=== PATIENT | male | born 1975 | race African-American/Black ===

== ENCOUNTER 2019-12-24 01:11 | Day surgery (SDC) | payer OTHER, SELFPAY ==
[2019-12-24] VITALS (14 sets, daily range): BP systolic 101–117; BP diastolic 73–81; PULSE 61–79; RESP 10–20; TEMP 36.2–36.6; O2SAT 100; BMI 27.2
--- NOTE | ~2019-12-24 | XR_ITS ---
EXAMINATION: XR chest 1V portable EXAM DATE: 12/24/2019 12:43 INDICATION: Status post ICD placement. TECHNIQUE: Portable AP frontal chest x-ray was obtained. Comparison is made to prior examination from 04/14/2019. FINDINGS: There is single lead pacemaker/AICD device seen with tip projecting over the expected locat ion of right ventricle. No confluent consolidation, pneumothorax or pleural effusion suspected. The c ardiomediastinal silhouette is prominent but magnified on this AP technique. There are no osseous abn ormalities identified. IMPRESSION: No evidence postprocedure pneumothorax. Reviewed, dictated and finalized at location A. NOMY TEACHER
--- NOTE | ~2019-12-24 | XR_ITS ---
EXAMINATION: XR chest 2V DATE: 12/25/2019 09:56 INDICATION: Intracardiac defibrillator placement. TECHNIQUE: Frontal and lateral views of the chest were obtained. COMPARISON: Chest single view 12/24/2019 FINDINGS: The chest demonstrates clear lungs without pneumonia, pleural effusion, or pneumothorax. Th e heart size is normal. There is a left chest pacer/defibrillator with lead in right ventricle. There is mild chronic anterior wedging of multiple midthoracic vertebral bodies. IMPRESSION: 1. No acute cardiopulmonary disease. Reviewed, dictated and finalized at location A. NER TECHNICIAN
--- NOTE | 2019-12-24 08:30 | ECG_ITS ---
Measurements Intervals [place] Rate: 75 P: 60 MS: 179 QRS: -42 QRSD: 140 T: -12 QT: 399 QTc: 447 Interpretive Statements SINUS RHYTHM LEFT ATRIAL ENLARGEMENT RIGHT BUNDLE BRANCH BLOCK ANTERIOR INFARCT, AGE INDETERMINATE INFERIOR INFARCT, AGE INDETERMINATE BASELINE ARTIFACT- II, III, AVF ABNORMAL ECG Electronically Signed On 12-24-2019 9:25:17 INGOT CAR OPERATOR by Keven Saba D.O.
[2019-12-24 09:24] LABS: Basophils Absolute Auto 0.1 K/mm3 (0.0-0.1); Eosinophils Absolute Auto 0.1 K/mm3 (0-0.3); Eosinophils Percent Auto 1.8 % (0-4.4); Hematocrit 47.5 % (42.0-52.0); Hemoglobin 15.4 g/dL (14.0-18.0); Immature Granulocyte Absolute 0.02 K/mm3 (0.00-0.031); Immature Granulocyte Percent A 0.3 % (0-0.5); Lymphocytes Absolute Auto 2.32 K/mm3 (0.9-3.2); Lymphocytes Percent Auto 30.1 % (18.3-44.2); Mean Corpuscular HGB Conc 32.4 g/dl (32-36); Mean Corpuscular Hemoglobin 30.1 pg (26-34); Mean Platelet Volume 10.8 fl (7.4-10.4); Monocytes Absolute Auto 0.6 K/mm3 (0.1-0.6); Monocytes Percent Auto 7.7 % (2.6-8.5); Neutrophils Absolute Auto 4.6 K/mm3 (1.3-6.7); Neutrophils Percent Auto 59.1 % (45.5-73.1); Platelet Count Result 197 k/mm3 (150-375); Red Blood Count 5.11 M/mm3 (4.6-6.20); Red Cell Distribution Width 12.2 % (11.5-14.5); White Blood Count 7.7 K/mm3 (4.5-10.0)
[2019-12-24 09:35] LABS: INR 1.1; Prothrombin Time 13.6 Seconds (11.1-14.7)
--- NOTE | 2019-12-24 09:45 | PM.IMHP ---
H&P: HPI History of Present Illness Chief complaint: Severe LV Systolic Dysfunction Narrative: Date of service: 12/24/2019 Brody Alvares is a 44 year old male who is here for an ICD implantation. He has history of ND and cardiogenic shock in April [address] Mendiola with stents of the RCA and Left anterior descending. Despite medical therapy, his EF remains 26% and he is at risk of sudden cardiac . ICD implantation has been recommended to him for primary prevention. He is feeling well today, no volume overload, shortness of breath, chest pain or fevers. History of left clavicular fracture. Review of Systems Constitutional: Constitutional: Denies chills ENT: Denies epistaxis Cardiovascular: Cardiovascular: Denies chest pain and Denies leg edema Respiratory: Respiratory: Denies chest congestion and Denies dyspnea Gastrointestinal: Gastrointestinal: Denies abdominal pain Genitourinary: Genitourinary: Denies dysuria Musculoskeletal: Musculoskeletal: Denies back pain Integumentary/Breasts: Skin/Breast: Denies rash Neurologic: Denies confusion Psychiatric: Psychiatric: Denies anxiety [facility] Past Medical History Medical History Inferior myocardial infarction Associated with cardiogenic shock, April 2019, treated with RCA and Left anterior descending stents by Dr. Mendiola Ischemic cardiomyopathy Meds Home Medications and Allergies Home Medications Medication Instructions Recorded Confirmed Type aspirin 81 mg PO HS 12/24/19 12/24/19 History atorvastatin 80 mg PO HS 12/24/19 12/24/19 History lisinopril 2.5 mg PO HS 12/24/19 12/24/19 History metoprolol succinate 50 mg PO HS 12/24/19 12/24/19 History spironolactone 25 mg PO DAILY 12/24/19 12/24/19 History ticagrelor [Brilinta] 90 mg PO Q12H 12/24/19 12/24/19 History Allergies Allergy/AdvReac Type Severity Reaction Status Date / Time No Known Allergies Allergy Verified 04/14/19 03:45 Exam Narrative: Exam Narrative: Pleasant young male in no distress accompanied by girlfriend and mother. Const: General: comfortable and no acute distress HENMT: Mouth: Yes moist mucous membranes Other: Oropharynx clear, dentition in good repair. Eyes: EOM: EOMs intact bilaterally Neck: Neck: supple Carotids: no bruits Resp: Effort & Inspection: normal respiratory effort Auscultation: clear to auscultation bilaterally Cardio: Rate: regular rate Rhythm: regular rhythm Heart sounds: no murmurs GI: Inspection: non-distended GI Palp: Yes Soft to palpation and No Tenderness to palpation present (GI) Skin: General skin exam: normal color and no rashes or lesions noted Neuro: Cognition (Neuro): normal cognition Speech: normal speech Extrem: Right lower extremity: no edema Left lower extremity: no edema Psych: Mental Status: mental status grossly normal Affect: normal affect H&P: Results Labs Labs: Short CBC 12/24/19 Range/Units 09:11 WBC 7.7 (4.5-10.0) K/mm3 Hgb 15.4 (14.0-18.0) g/dL Hct 47.5 (42.0-52.0) % Plt Count 197 (150-375) k/mm3 Assessment and Plan Assessment and plan (1) Ischemic cardiomyopathy: Code(s): I25.5 - Ischemic cardiomyopathy Status: Acute Assessment and Plan: Reviewed ICD indications, function and implant with the patient and family. Reviewed risks of pacemaker implant with patient. These include breathing problems, allergic reactions, bleeding, infection, pneumothorax, cardiac puncture, need for unanticipated surgery, lead dislodgement among others. Patient held his Brilinta yesterday and today but is aware he may have more trouble with oozing, bleeding and hematoma than average. Discussed venogram (since the patient had a left clavicular fracture this will be necessary). Patient desires to proceed. (2) At risk for sudden cardiac : Code(s): Z91.89 - Other specified personal risk factors, no
--- NOTE | 2019-12-24 09:51 | P.SEDATION_ITS ---
Moderate Sedation Note-Pt Data Patient Data Diagnosis: Ischemic cardiomyopathy, EF 26% Present Complaint: Ischemic cardiomyopathy, at risk of sudden cardiac History of inferior NV, status post RCA and Left anterior descending stents in April [address] Quinteros Procedure to be performed/Plan: Conscious sedation venogram implantation of a single lead ICD Allergies Allergy/AdvReac Type Severity Reaction Status Date / Time No Known Allergies Allergy Verified 04/14/19 03:45 Home Medications Medication Instructions Recorded Confirmed Type aspirin 81 mg PO HS 12/24/19 12/24/19 History atorvastatin 80 mg PO HS 12/24/19 12/24/19 History lisinopril 2.5 mg PO HS 12/24/19 12/24/19 History metoprolol succinate 50 mg PO HS 12/24/19 12/24/19 History spironolactone 25 mg PO DAILY 12/24/19 12/24/19 History ticagrelor [Brilinta] 90 mg PO Q12H 12/24/19 12/24/19 History Current Medications: Active Medications Cefazolin Sodium (Ancef 1 Gm/D5w 50 Ml Pm) 1 gm in 50 mls @ 100 mls/hr IVPB ONCE ONE Stop: 12/24/19 10:29 Sedation/Anesthesia: No previous sedation/anesthesia problems (including family history). [facility] Past Medical History Medical History Inferior myocardial infarction Associated with cardiogenic shock, April 2019, treated with RCA and Left a nterior descending stents by Dr. Mendiola Ischemic cardiomyopathy Mod Sed Physical Exam Physical Exam Pre Procedural Exam: Normal: Appearance, Eyes, Ears, Nose, Neck, Throat, Airway, Lungs, Heart Size, Heart Rate, Heart Rhythm, Neuro Exam, Abdomen, Liver, Extremities and Skin Hours since solid foods: 12 Hours since liquid intake: 12 Internal Medicine - PN: Obj Da Meds/Results Medications: Active Medications Generic Name Dose Route Start Last Admin Trade Name Freq PRN Reason Stop Dose Admin Cefazolin Sodium 1 gm in 50 mls @ 100 mls/hr 12/24/19 10:00 Ancef 1 Gm/D5w 50 Ml Pm IVPB 12/24/19 10:29 ONCE ONE Labs CBC & Chem 7: 12/24/19 09:11 12/24/19 10:21 Labs: Laboratory Results - last 24 hr 12/24/19 12/24/19 09:11 09:11 WBC 7.7 RBC 5.11 Hgb 15.4 Hct 47.5 MCV 93.0 MCH 30.1 MCHC 32.4 RDW 12.2 Plt Count 197 MPV 10.8 H Immature Gran % (Auto) 0.3 Neut % (Auto) 59.1 Lymph % (Auto) 30.1 [place] % (Auto) 7.7 Eos % (Auto) 1.8 Baso % (Auto) 1.0 Lymph # (Auto) 2.32 [place] # (Auto) 0.6 Eos # (Auto) 0.1 Baso # (Auto) 0.1 Abs Immat Gran (auto) 0.02 Absolute Neuts (auto) 4.6 Absolute Nucleated RBC 0.0 Nucleated RBC % 0.0 PT 13.6 INR 1.1 ASA Classification/Sedation ASA Classification/Sedation ASA Class: III Emergent: No Risks: Risks, benefits and alternatives explained and patient/family accepted plan for sedation. Patient re-evaluated immediately prior to sedation.
[2019-12-24 10:40] LABS: Blood Urea Nitrogen 14 mg/dL (9-20); Calcium 9.3 mg/dL (8.4-10.2); Carbon Dioxide 25 mmol/L (22-30); Chloride 103 mmol/L (98-107); Estimated CRCL calculation 82 ml/min; Estimated Glomerular Filt Rate > 60; Glucose 112 mg/dL (75-110); Sodium 141 mmol/L (137-145)
--- NOTE | 2019-12-24 12:11 | PM.OP ---
Procedure Note - Brief Procedure Note - Brief Date of procedure: 12/24/19 Pre-op diagnosis: Severe LV Systolic Dysfunction at risk for sudden cardiac Ischemic cardiomyopathy Post-op diagnosis: same Procedure performed: Venogram Implantation of a permanent single lead [employer] ICD Description of procedure: status post successful implant of ICD Implants: [employer] Fortify Assura VR ICD, VVI, model # 1357-40Q Anesthesia: local ( with conscious sedation) Surgeon: Paris Argueta MD Estimated blood loss (mL): 15 Drains: No Packing: No Pathology: none sent Complications: No immediate complications Condition: stable Disposition: no change Findings: Successful implant of a VVI [employer] ICD
--- NOTE | 2019-12-24 13:20 | SUR.PHASEII ---
1214 PATIENT RETURNS TO [facility] ROOM [address] INSERT[address] WITH DR. NASH, POST EKG OBTAINED, AND POST PROCEDURE XRAY TAKEN. INSTRUCTED ON BEDREST AND RESTRICTIONS, ALL QUESTIONS ANSWERED. NO SIGNS OF BLEEDING AT INCISION, AQUACEL AG CLEAN DRY AND INTACT.
--- NOTE | 2019-12-24 13:31 | SUR.PHASEII ---
1314 PATIENT STATUS CHANGED TO EXTENDED RECOVERY POST ICD INSERTION. SEE PCS FOR CONTINUED DOCUMENTATION.
--- NOTE | 2019-12-24 17:40 | PM.PROC ---
Procedure Note - Detailed Date of procedure: 12/24/19 Pre-op diagnosis: Severe LV Systolic Dysfunction Ischemic cardiomyopathy, EF 26% despite medical therapy At risk for sudden cardiac Post-op diagnosis: same Procedure performed: Venogram Implantation of a single lead [employer] /Resendiz ICD Description of procedure: PROCEDURE PERFORMED: Conscious sedation Venogram Placement of a permanent single-chamber ICD SITE: Left prepectoral area MEDICATIONS GIVEN IN ENGINEERING MANAGER: Ancef 1 gram IV piggyback CONSCIOUS SEDATION: Assessment: The patient has no history of anesthesia problems. The patient's oropharynx is clear. The patient was deemed to be a good candidate for conscious sedation. The patient had continuous hemodynamic monitoring during the procedure. Start time: 1041 Completion time: 1155 Total conscious sedation time: 74 minutes Medications: Versed 6 mg, fentanyl 150 mcg IV push Trained observer: Racquel Dela Cruz RN Outcome: The patient tolerated the procedure well with no complications. PROCEDURE: After informed consent , the patient was brought to the director geophysical laboratory and the left prepectoral area was prepped and draped in usual fashion . The patient received preop antibiotic and conscious sedation . I performed a venogram with 20 cc of Visipaque through the IV in the left forearm to assure patency of the subclavian vein, since the patient has a history of clavicular fracture. The vein was tortuous but patent. The left prepectoral area was anesthetized with lidocaine . I was unable to locate the subclavian vein or axillary vein with vascular ultrasound. A skin incision was made and carried down to the prepectoral fascia. The pacemaker pocket was formed. The left subclavian vein was accessed with the Cook needle using the venogram as guidance and a J-tipped guide wire was passed into the superior vena cava under fluoroscopic guidance . The needle was withdrawn . Hemostasis was obtained using electrocautery . The pacer pocket was formed. A 7 Yoruba Yoruba safety sheath was passed over the wire, the wire withdrawn, and the right ventricular lead was passed into the inferior vena cava under fluoroscopic guidance . The lead was then prolapsed through the tricuspid valve and advanced into the right ventricular apex. When suitable sensing and pacing thresholds were obtained , it was screwed into place. No extra cardiac stimulation was obtained using 10 volts. The sheath was withdrawn. The lead was secured to the prepectoral fascia using 2-0 silk over its sleeve. The pocket was cleansed with antibiotic containing solution . The pulse generator was introduced into the operative field, and the lead wassecured into the generator . At gentle tug showed the lead was securely fastened. The device was introduced into the pocket. a stay stitch was applied with 2 0 silk suture. The subcutaneous tissues were closed in a double layer fashion with interrupted sutures, using 2-0 Vicryl suture , and the skin was closed in a continuous fashion using 4-0 Vicryl suture in a continuous fashion. The area was cleansed, andan Aquacel dressing was applied . The patient tolerated the procedure well with no complications. PACEMAKER INFORMATION: Pulse generator: [employer], Fantasy Buzzerify Assura VR 1357-40 Q, serial #[id number] Right ventricular lead: [employer] model Durata 7122Q/ 5 8, serial #[id number] MEASURED DATA: Right ventricular lead: R-wave sensing 6.8 mV, impedance 680 Ohms, threshold 0.5 volts at 0.5 milliseconds High voltage lead: Impedance 63 Ohms PROGRAMMING; VVI 40 V-tach zone: 171 ppm, ATP x3, 36 joules, 40 joules, 40 joules X2 VFib zone: 2014 ppm, ATP x1, 36 joules, 40 joules, 40 joules x4 Implants: [employer] ICD, VVI (single lead) model: Shared Spectrum Assura VR 1357-40 Q, serial #[id number] Anesthesia: local ( conscious sedation) Surgeon: Paris Argueta MD Estimated blood loss (mL): 1
[2019-12-24] MEDS: ceFAZolin 2 GM/D5W 50 ML 2 GM/50 ML BAG IVPB (17:59)
[2019-12-24] MEDS: ATORVASTATIN 40 MG TABLET 80 MG PO (20:58)
[2019-12-24] MEDS: lisinopriL 2.5 MG TABLET PO (20:58)
[2019-12-24] MEDS: ASPIRIN 81 MG CHEWABLE TABLET PO (20:58)
[2019-12-24] MEDS: METOPROLOL SUCCINATE EXT REL 50 MG TABCR PO (20:59)
[2019-12-25] VITALS: BP 96/67; PULSE 70; RESP 14
[2019-12-25 02:00] VITALS: PULSE 76
[2019-12-25] MEDS: ceFAZolin 2 GM/D5W 50 ML 2 GM/50 ML BAG IVPB (02:00)
[2019-12-25 04:00] VITALS: BP 94/67; PULSE 73; RESP 12; TEMP 36.6; O2SAT 100
[2019-12-25 06:00] VITALS: PULSE 63
[2019-12-25 08:00] VITALS: BP 106/63; PULSE 63; PULSE 64; RESP 14; O2SAT 98
[2019-12-25] MEDS: SPIRONOLACTONE 25 MG TABLET PO (08:48)
[2019-12-25 10:00] VITALS: PULSE 64
--- NOTE | 2019-12-25 10:42 | PM.DS ---
DS: Diagnosis Admitting Diagnosis Admitting Diagnosis: Ischemic cardiomyopathy at risk for sudden cardiac Discharge Diagnosis (1) Ischemic cardiomyopathy: Code(s): I25.5 - Ischemic cardiomyopathy Status: Acute Assessment and Plan: Status post Resendiz ([employer]) single-chamber ICD for primary prevention ICD is functioning normally on day of discharge. No pneumothorax on chest x-ray. (2) At risk for sudden cardiac : Code(s): Z91.89 - Other specified personal risk factors, not elsewhere classified Status: Acute Assessment and Plan: ICD as above DS: Summary Hospital Course Reason for hospitalization: Primary prevention ICD placement for ischemic cardiomyopathy at risk for sudden cardiac Hospital Course: 44-year-old male with a history of severe LV systolic dysfunction EF 26% despite medical therapy at risk for sudden cardiac . ICD implantation was recommended. Resendiz ([employer]) single-chamber ICD placed by Dr Argueta on 12/24/2019. Chest x-ray immediately postop was negative for pneumothorax. He was monitored overnight. Chest x-ray remains negative for pneumothorax. Device was functioning normally on day of discharge. He had minimal discomfort at the site of the implant. He was discharged home in stable condition. Status at Discharge Functional status at discharge: independent ambulation Overall status at discharge: patient is back to baseline Time Spent with Patient Time attestation: Total time spent providing and/or coordinating discharge services: 35 minutes with activity restrictions, restarting medications, follow-up appointment, discharge order and discharge summary Time spent: Greater than 30 minutes Exam Const: General: comfortable and no acute distress; No confusion HENMT: Mouth: Yes moist mucous membranes Eyes: EOM: EOMs intact bilaterally Neck: Neck: supple Resp: Effort & Inspection: normal respiratory effort Auscultation: clear to auscultation bilaterally Cardio: Rate: regular rate Rhythm: regular rhythm Heart sounds: no murmurs Other: Left subclavian ICD implantation site with Aquacel AQ dressing intact. Slight edema at pocket but still able to palpate the edge of the can. GI: Inspection: non-distended Skin: General skin exam: normal color and no rashes or lesions noted Neuro: General: No confusion Cognition (Neuro): normal cognition Speech: normal speech Extrem: Right lower extremity: no edema Left lower extremity: no edema Psych: Mental Status: mental status grossly normal Affect: normal affect Discharge Plan Discharge Patient Disposition: Home, Self-Care Discharge Instructions: ACTIVITY: No driving until you are seen in the office for your incision check. No lifting, pushing or pulling more than 5 pounds with left arm for 6 WEEKS. No lifting left arm above shoulder height for 6 WEEKS Wear sling only if you are unable to remember the above activity restrictions. Recommend that it be worn at night. You may shower AFTER you are seen for incision check on December 30 but no tub baths, swimming pool or hot tub for 1MONTH FOLLOW-UP: Follow up with [facility] office [address] on December 30, 2019 at 1:30 p.m. with Teresa Rose in the Device [facility] to have your dressing removed, incision checked and defibrillator checked. on February 03, 2020 at 11:30 a.m. to have your device checked with Teresa Rose in the Device [facility] on April 13, 2020 at 2:[address] Mendiola Please arrive by 1:15 p.m. for your appointment. Bring photo ID, insurance card(s) and current medication list. Sign up for [employer]. The activation code is on your appointment confirmation. DIET: Heart healthy/low-sodium WOUND CARE: Do not attempt to remove dressing. There is a certain technique to removing this dressing.
--- NOTE | 2019-12-25 11:06 | PC.NURSE ---
1100-Pt given D/C orders and instructions. Questions answered and verbalized understanding. No evidence of bleeding on Aquacel. PIV removed. Taken via wheelchair to waiting vehicle. No distress noited or verbalized at time of departure.
== END 2019-12-25 11:00 | disposition home or self-care (01) ==
LOC: ANHCATHLAB 08:58 → ANHCPC 12-25 09:54 → ANHCATHLAB 02-18 08:30 → ANHCPC 02-18 08:31
PROVIDERS: Visit Provider Internal Medicine Cardiovascular Disease
PROC: 0JH608Z Insertion of Defibrillator Generator into Chest Subcutaneous Tissue and Fascia, Open Approach (ICD-10-PCS; CPT 33249; principal; 2019-12-24 10:00)
DX: I50.20 Unspecified systolic (congestive) heart failure (principal); I25.5 Ischemic cardiomyopathy; I25.2 Old myocardial infarction; Z95.5 Presence of coronary angioplasty implant and graft; Z79.01 Long term (current) use of anticoagulants; Z79.82 Long term (current) use of aspirin
CPT/HCPCS: 33249; 36415; 71045; 71046; 80048; 85025; 85610; 93005; A9270; C1722; J0690; J2250; J3010; J7040

== ENCOUNTER 2022-08-06 17:10 | Inpatient (IN) | payer OTHER, SELFPAY ==
[2022-08-06] VITALS (13 sets, daily range): BP systolic 102–123; BP diastolic 60–92; PULSE 75–98; RESP 13–24; TEMP 36.2–36.5; O2SAT 98–100; BMI 28.3
--- NOTE | ~2022-08-06 | XR_ITS ---
EXAMINATION: XR chest 1V portable Exam Date/Time: 08/06/2022 17:45 CDT HISTORY: CHEST PAIN Comparison: 12/25/2019. RESULT: Lines, tubes, and devices: Left chest AICD, with intact lead. Lungs and pleura: Clear. Cardiomediastinal silhouette: Stable. Other: No acute osseous or upper abdominal finding. IMPRESSION: No acute cardiopulmonary process. Reviewed, dictated and finalized at location K.
--- NOTE | 2022-08-06 17:18 | ECG_ITS ---
Measurements Intervals [place] Rate: 85 P: 40 DE: 147 QRS: -29 QRSD: 140 T: 58 QT: 406 QTc: 483 Interpretive Statements SINUS RHYTHM RIGHT BUNDLE BRANCH BLOCK INFERIOR MYOCARDIAL INFARCTION , OF INDETERMINATE AGE ANTEROSEPTAL MYOCARDIAL INFARCTION , PROBABLY RECENT ACUTE [place] COMPARED TO ECG 12/24/2019 09:09:02 ST ELEVATIONS IN THE ANTEROSEPTAL LEADS ARE NOW PRESENT Electronically Signed On 08-07-2022 17:21:04 CDT by Keesha Mckeon M.D.
[2022-08-06] MEDS: ASPIRIN 81 MG CHEWABLE TABLET 324 MG PO (17:43)
--- NOTE | 2022-08-06 17:43 | ECG_ITS ---
Measurements Intervals [place] Rate: 86 P: 48 SD: 150 QRS: -34 QRSD: 167 T: 36 QT: 373 QTc: 448 Interpretive Statements SINUS RHYTHM RIGHT BUNDLE BRANCH BLOCK INFERIOR MYOCARDIAL INFARCTION , OF INDETERMINATE AGE ANTEROSEPTAL MYOCARDIAL INFARCTION , POSSIBLY ACUTE ACUTE [place] COMPARED TO ECG 08/06/2022 17:21:32 ST ELEVATIONS IN ANTEROSEPTAL LEADS HAVE WORSENED Electronically Signed On 08-07-2022 17:22:58 CDT by Keesha Mckeon M.D.
--- NOTE | 2022-08-06 17:43 | PC.NURSE ---
1731 Stemi O/H 1732 [facility] cath team 1733 Peter 1735 Peter 1736 [facility] [place] cath standby ETA 15min
[2022-08-06] MEDS: TICAGRELOR 90 MG TABLET 180 MG PO (17:44)
[2022-08-06] MEDS: HEPARIN SODIUM 5,000 UNITS/ML VIAL 4000 UNITS IV PUSH (17:45)
--- NOTE | 2022-08-06 17:45 | ED.GENADULT ---
HPI - General Adult General Chief complaint: Weakness Stated complaint: weakness, left arm numbness Time Seen by Provider: 08/06/22 17:28 Source: patient, RN notes reviewed and old records reviewed Mode of arrival: ambulatory Limitations: no limitations History of Present Illness HPI narrative: This is a 46 year old male with history of CAD s/p stent, ICD who presents for evaluation of near syncope and chest pain. Patient states he was walking to the kitchen when he developed lightheadedness. He also states he felt hot, diaphoretic. His father was able to get him to his bed. He then developed midsternal chest pain with left arm numbness. His pain has improved, and he states it doesn't feel pain , but he has midsternal tightness. She denies sob, nasuea, vomiting, or dizziness. His teletype installer is Dr. Mendiola and he last saw him in April. He has been out of his Brilinta for 2 days. He took aspirin 81 mg today . He also took his metoprolol today. He rates his pain 5/10. He has RCA stent, LAD stent x 2 Related Data Home Medications Medication Instructions Recorded Confirmed aspirin 81 mg chewable tablet 81 mg PO HS 12/24/19 08/06/22 atorvastatin 80 mg tablet 80 mg PO HS 12/24/19 08/06/22 empagliflozin 10 mg tablet 10 mg PO DAILY 08/06/22 08/06/22 (Jardiance) metoprolol succinate 25 mg 25 mg PO DAILY 08/06/22 08/06/22 tablet,extended release 24 hr sacubitril 49 mg-valsartan 51 mg 1 tablet PO DAILY 08/06/22 08/06/22 tablet (Entresto) Allergies Allergy/AdvReac Type Severity Reaction Status Date / Time No Known Allergies Allergy Verified 08/06/22 17:58 Review of Systems Review of Systems: All systems reviewed & are unremarkable except as noted in HPI and below PMFSH Past Medical History Medical History (Updated 08/06/22 @ 18:16 by Radha Dickens MD) ICD (implantable cardioverter-defibrillator) in place Inferior myocardial infarction Associated with cardiogenic shock, April 2019, treated with RCA and Left anterior descending stents by Dr. Mendiola Ischemic cardiomyopathy Surgical History Surgical History (Updated 08/06/22 @ 17:50 by Radha Dickens MD) History of cardiac cath Family History Family History (Updated 08/06/22 @ 20:04 by Martina Dias RN) Father CVD (cardiovascular disease) Hx of CABG Mother Thyroid disease Social History Social History Smoking status: Former smoker Alcohol intake: current Drinks per week: 5 Substance use: current Substance use type: marijuana Spiritual care concerns: No Exam Const: General: no acute distress and alert Nutritional Appearance: well nourished Orientation/consciousness: patient oriented x3 Limitations: no limitations HENMT: Head: normal to inspection Face and sinus: normal facial exam Eyes: EOM: EOMs intact bilaterally Resp: Effort & Inspection: normal respiratory effort Auscultation: clear to auscultation bilaterally Cardio: Rate: regular rate Rhythm: regular rhythm Heart sounds: no murmurs GI: GI Palp: Yes Soft to palpation, No Tenderness to palpation present (GI) and No Guarding due to palpation present (GI) Auscultation: normal bowel sounds Skin: General skin exam: normal color Rashes: no rashes Wounds: no wounds Neuro: General: patient oriented x3, moves all extremities and CN's II-XI intact bilaterally Cranial nerves: Yes Nystagmus not present Extrem: General: normal to inspection Psych: Mental Status: mental status grossly normal Affect: normal affect Attitude: cooperative Course Reevaluation(s) Reevaluation #1: PAtient states he feels fine. He is not in acute distress. HE has been given aspirin, brilinta and heparin bolus. Date: 08/06/22 Time: 17:52 Consultations Consultation #1: Dr. Green notified of STEMI. He is on his way. P Date: 08/06/22 Time: 17:34 Vital Signs Vital signs: Vital Signs Temperature 97.1 F L 08/06/22 17:11 Pulse Rate 87 08/06/22 1
--- NOTE | 2022-08-06 17:58 | PC.NURSE ---
Pt prepped for clinical laboratory aide. Pt reports he has been out of his Brilinta for 2 days and pharmacy will not have it available until 08/08.
[2022-08-06 18:00] LABS: Basophils Absolute Auto 0.1 K/mm3 (0.0-0.1); Basophils Percent Auto 0.5 % (0.2-1.2); Eosinophils Absolute Auto 0.1 K/mm3 (0-0.3); Eosinophils Percent Auto 0.5 % (0-4.4); Hematocrit 52.9 % (42.0-52.0); Hemoglobin 17.5 g/dL (14.0-18.0); Immature Granulocyte Absolute 0.06 K/mm3 (0.00-0.031); Immature Granulocyte Percent A 0.5 % (0-0.5); Lymphocytes Absolute Auto 1.96 K/mm3 (0.9-3.2); Lymphocytes Percent Auto 15.9 % (18.3-44.2); Mean Corpuscular HGB Conc 33.1 g/dl (32-36); Mean Corpuscular Volume 96.7 fl (80-100); Mean Platelet Volume 10.2 fl (7.4-10.4); Monocytes Absolute Auto 0.7 K/mm3 (0.1-0.6); Monocytes Percent Auto 5.4 % (2.6-8.5); Neutrophils Absolute Auto 9.5 K/mm3 (1.3-6.7); Neutrophils Percent Auto 77.2 % (45.5-73.1); Platelet Count Result 211 k/mm3 (150-375); Red Blood Count 5.47 M/mm3 (4.6-6.20); Red Cell Distribution Width 14.9 % (11.5-14.5); White Blood Count 12.3 K/mm3 (4.5-10.0)
[2022-08-06] MEDS: NITROGLYCERIN OINTMENT 1 INCH DOSE TRANSDERM (18:00)
[2022-08-06 18:11] LABS: INR 1.1; Prothrombin Time 13.4 Seconds (11.1-14.7)
[2022-08-06 18:12] LABS: Partial Thromboplastin Time 24.7 SECONDS (22.3-36.8)
--- NOTE | 2022-08-06 18:15 | PC.NURSE ---
laboratory worker here to take pt for cath.
[2022-08-06 18:56] LABS: Alanine Aminotransferase 105 U/L (6-50); Albumin Level 5.1 g/dL (3.5-5.1); Alkaline Phosphatase 50 U/L (38-126); Anion Gap 15 mmol/L (8-16); Aspartate Amino Transferase 68 U/L (17-59); Bilirubin,Total 0.7 mg/dL (0.2-1.3); Blood Urea Nitrogen 7 mg/dL (9-20); Calcium 9.3 mg/dL (8.4-10.2); Carbon Dioxide 21 mmol/L (22-30); Chloride 100 mmol/L (98-107); Estimated CRCL calculation 88 ml/min; Estimated Glomerular Filt Rate > 60; Glucose 103 mg/dL (65-110); Lipase 101 U/L (23-300); Potassium 4.2 mmol/L (3.4-5.0); Sodium 136 mmol/L (137-145)
--- NOTE | 2022-08-06 19:01 | WPDCARDPROC ---
Cardiac Cath Procedure Note Date of procedure:: 08/06/22 Performing physician:: Andrzej Green MD Indication:: chest pain/ST-elevation Brief clinical history:: this 46-year-old man unknown me prior to this encounter. He presented to the emergency room this evening after an episode of brief syncope that occurred at home. Following this he experienced some central chest discomfort and was seen in the emergency room. He was found to have anteriorly ST segment elevation as well as evidence of significant Q-waves both anteriorly and inferiorly. Anterior STEMI was declared by the ED staff. I am seeing the patient is being prepared prepared for emergency angiography is no longer having any chest pain. He apparently is a patient of my partner, Dr. Mendiola who has performed mentions on his LAD and right coronary is in the past he appears to have a history of ischemic cardiomyopathy and a defibrillator implantation. Previous electrocardiogram in our chart does show anterior Q-waves as well. Procedure Procedure performed:: Emergency coronary angiography Sedation/Medication given:: no sedation Access site:: right femoral artery Estimated blood loss:: 25 cc Procedure note:: patient was brought to the cardiac catheterization lab the emergently where the right femoral triangle was prepared draped in the fashion. Anesthesia was provided with lidocaine infiltrated locally. Using the modified Seldinger technique a 6 Welsh sheath was placed into the right femoral artery. After 5 Welsh JR4 catheter to engage inject the right coronary artery in orthogonal projections. Following this 5 Welsh FL4 catheter to engage and inject the left coronary artery. Cine and the case was terminated. A stitch was put in the groin to secure the sheath was taken to the ICU for recovery and sheath removal. Findings:: The left main coronary artery is nicely patent the left anterior descending is a moderate caliber artery proximally with visible stent material in the proximal 1/3 of the vessel. The stented segment remains nicely patent without any loss of lumen. The ostial segment of the LAD has moderate stenosis of 50-60%. Distally down the apex the LAD is quite small but is patent down to the apex. the circumflex is a moderate caliber artery giving rise to the marginal branches the circumflex has mild luminal irregularities. After the major obtuse marginal branch there is approximately 70-80% stenosis in the ostium of the posterior AV groove portion of the circumflex. There was VELIA 3 flow in the vessel. The right coronary artery is large caliber with inferior takeoff is dominant to the posterior circulation there is visible stent material in the proximal half of the right coronary artery. It is widely patent with no loss of lumen. The acute marginal RV branch takes origin in this segment and has a ostial 80-90% stenosis. It is obviously jailed by the stent and has VELIA 3 flow in it. There is a moderate size left coronary vessel in the distribution of a very proximal obtuse marginal branch or very high diagonal which is totally occluded and receives collateral flow from the distal portion of the LAD and fills retrograde from this fashion. There is no visible stump on the proximal segment of the left coronary where this vessel would originate. It takes a orientation where it appears a likely originated from the proximal segment of the LAD which if was the case would be covered by the stented area of this vessel. Once again it appears to be a chronic occlusion which is collateralized. Conclusion:: 1. Significant coronary artery disease with 3 prior history of myocardial infarctions in the distribution of LAD and right coronary arteries with severe ischemic cardiomyopathy 2. episode of syncope at home followed by some chest pain after he recovered from that. ECG upon the appearance of anterior ST elevation with current of injury however the LAD i
--- NOTE | 2022-08-06 19:09 | PM.IMHP ---
H&P: HPI History of Present Illness Date/Time: 08/06/22 19:09 Chief Complaint: syncopal episode followed by chest pain Narrative: this is a 46-year-old man unknown to me I am seeing briefly in the cardiac catheterization lab is he is being prepared for emergency angiogram. The patient apparently has a history of coronary artery disease previous myocardial infarction, previous percutaneous revascularization with defibrillator implantation. He is a patient my partner, . he states he was at his usual state of health at home today when he noticed the onset sudden lightheadedness and the sense of either near-syncope or brief syncope at his home he slumped down against the wall in his kitchen. He states his defibrillator was making some sort of alarming noise but did not shock him as far as he can tell. He then felt better after short time but started having some chest pain. Because of these events he came to the emergency room where he was evaluated. His ECG shows sinus rhythm with anterior ST segment elevation also with anterior Q-waves and inferior Q-waves. In this setting STEMI was declared and we are about to perform an emergency angiogram. Review of Systems Review of Systems: ROS unobtainable: Yes unobtainable due to medical condition [facility] Past Medical History Medical History (Updated 08/06/22 @ 18:16 by Radha Dickens MD) ICD (implantable cardioverter-defibrillator) in place Inferior myocardial infarction Associated with cardiogenic shock, April 2019, treated with RCA and Left anterior descending stents by Dr. Mendiola Ischemic cardiomyopathy Surgical History Surgical History (Updated 08/06/22 @ 17:50 by Radha Dickens MD) History of cardiac cath Meds Home Medications and Allergies Home Medications Medication Instructions Recorded Confirmed Type aspirin 81 mg chewable tablet 81 mg PO HS 12/24/19 12/24/19 History atorvastatin 80 mg tablet 80 mg PO HS 12/24/19 12/24/19 History lisinopril 2.5 mg tablet 2.5 mg PO HS 12/24/19 12/24/19 History metoprolol succinate 50 mg 50 mg PO HS 12/24/19 12/24/19 History tablet,extended release 24 hr spironolactone 25 mg tablet 25 mg PO DAILY 12/24/19 12/24/19 History ticagrelor 90 mg tablet (Brilinta) 90 mg PO Q12H #0 tabs 12/25/19 12/24/19 Rx Allergies Allergy/AdvReac Type Severity Reaction Status Date / Time No Known Allergies Allergy Verified 08/06/22 17:58 Vital Signs Vital Signs - 24 hr 08/06/22 17:11 08/06/22 17:48 08/06/22 17:45 Temperature 36.2 C L Pulse Rate 87 75 94 Respiratory Rate 18 24 H Blood Pressure 122/75 114/60 Pulse Oximetry 100 100 Oxygen Delivery Room Air 08/06/22 17:49 08/06/22 18:00 08/06/22 18:01 Temperature Pulse Rate 80 78 78 Respiratory Rate 14 15 13 Blood Pressure 119/92 H Pulse Oximetry 100 100 100 Oxygen Delivery 08/06/22 18:22 Temperature Pulse Rate 78 Respiratory Rate 20 Blood Pressure Pulse Oximetry 99 Oxygen Delivery Exam Const: General: comfortable and no acute distress Other: Very pleasant comfortable black male reports to be having no symptoms at all currently HENMT: Mouth: Yes moist mucous membranes Eyes: Sclera: sclerae normal Pupils: Equal, round and reactive pupils present Neck: Neck: supple and no JVD Other: carotid upstrokes are normal carotid volume is diminished Resp: Effort & Inspection: normal respiratory effort Auscultation: clear to auscultation bilaterally Cardio: Rate: regular rate Rhythm: regular rhythm Other: the PMI is enlarged and laterally displaced first and second heart sounds are normal an S3 is present no murmur GI: GI Palp: Yes Soft to palpation Auscultation: normal bowel sounds Skin: General skin exam: normal color Neuro: Other: alert and oriented, normal cognition Extrem: Other: no edema adequate distal pulses H&P: Results Labs Labs: Short CBC 08/06/22 Range/Units 17:41 WBC 12.3 H (4.5-10
--- NOTE | 2022-08-06 19:19 | ADMGEN ---
This patient, Brody Alvares, was admitted to Intensive Care Unit-6. Patient/family oriented to hospital policies and general routines including ID bracelet, bed and alarms, visiting hours, pain management, procedures, bathroom and other care routines, personal items, smoking policy, room service/diet, and visiting hours. Information on how to activate the Rapid Response Team has been discussed. Patient/Family are encouraged to report perceived risks to care and to ask questions if they do not understand what they are told or what they should do.
[2022-08-06 19:22] LABS: Troponin I 0.041 ng/mL (0.000-0.034)
--- NOTE | 2022-08-06 20:13 | ECG_ITS ---
Measurements Intervals [place] Rate: 88 P: 69 [place]: 174 QRS: -40 QRSD: 134 T: 0 QT: 346 QTc: 419 Interpretive Statements SINUS RHYTHM POSSIBLE RIGHT ATRIAL ENLARGEMENT POSSIBLE LEFT ATRIAL ENLARGEMENT RIGHT BUNDLE BRANCH BLOCK ANTERIOR MYOCARDIAL INFARCTION [40+ ms Q WAVE AND/OR ST/T ABNORMALITY IN V3/V4], OF INDETERMINATE AGE INFERIOR MYOCARDIAL INFARCTION [40+ ms Q WAVE AND/OR ST/T ABNORMALITY IN II/aVF], OF INDETERMINATE AGE WARNING: DATA QUALITY MAY AFFECT INTERPRETATION COMPARED TO ECG 08/06/2022 17:34:48 ST ELEVATIONS NO LONGER PRESENT Electronically Signed On 08-07-2022 17:25:10 CDT by Keesha Mckeon M.D.
[2022-08-06] MEDS: SACUBITRIL/VALSARTAN 49-51 MG TABLET 1 TABLET PO (20:36)
[2022-08-06] MEDS: TICAGRELOR 90 MG TABLET PO (20:36)
[2022-08-06] MEDS: SODIUM CHLORIDE 0.9% IV 1,000 ML 125 ML IV CONT (20:36)
[2022-08-07] VITALS (13 sets, daily range): BP systolic 93–117; BP diastolic 68–85; PULSE 59–80; RESP 12–20; TEMP 36.4–36.8; O2SAT 97–100
--- NOTE | 2022-08-07 | ECHO_ITS ---
Patient Info Name: Brody Alvares Age: 46 years : 1975 Gender: Male Ht: 71 in Wt: 208 lbs BSA: 2.19 m2 HR: 78 bpm BP: 93 / 74 mmHg Heart Rhythm: Sinus Rhythm Technical Quality: Fair Exam Date: 08/07/2022 7:53 AM Exam Location: [facility] Patient Status: Inpatient Admit Date: 08/06/2022 Staff Ordering Physician: Andrzej Green MD Superintendent Mechanical: aCtrachita Allen RDCS Attending Provider: Andrzej Green MD Referring Physician: Peter MAYES; Exam Type: CA echo doppler color flow Study Info Indications - ISCHEMIC CM/SYNCOPE Complete two-dimensional, color flow and Doppler transthoracic echocardiogram is performed. Summary 1. Complete two-dimensional, color flow and Doppler transthoracic echocardiogram is performed. 2. Left ventricular chamber dimension is severely enlarged. 3. Left ventricular systolic function is severely reduced, estimated at 20-25%. 4. The left ventricular diastolic function is grade I diastolic dysfunction. 5. There is akinesis of the anteroseptum, apical septum, apical cap, inferior wall, and inferoseptum. Left Ventricle Left ventricular chamber dimension is severely enlarged. Left ventricular systolic function is severely reduced, estimated at 20-25%. There is no increased left ventricular wall thickness. The left ventricular diastolic function is grade I diastolic dysfunction. There is akinesis of the anteroseptum, apical septum, apical cap, inferior wall, and inferoseptum. Right Ventricle Right ventricular chamber dimension is normal. Right ventricular systolic function is normal. Left Atria Left atrial chamber dimension is normal. Right Atria Right atrial chamber dimension is normal. Aortic Valve The aortic valve is not well visualized. There is no aortic valve stenosis. There is trace aortic valve regurgitation. Pulmonic Valve The pulmonic valve is not well visualized. Mitral Valve The mitral valve has normal leaflets. There is no mitral valve stenosis. There is no mitral valve regurgitation. Tricuspid Valve The tricuspid valve leaflets are not well visualized. There is no significant tricuspid valve stenosis. There is trace tricuspid valve regurgitation. Pericardium/Pleural There is no pericardial effusion. Aorta The aortic root size at the sinus of Valsalva is normal. Left Ventricular Outflow Tract Name Value Normal LVOT 2D LVOT Diameter 2.0 cm LVOT Doppler LVOT Peak Gradient 4 mmHg LVOT Mean Gradient 2 mmHg LVOT VTI 15 cm LVOT VTI/AV VTI Ratio 0.5 LVOT Stroke Volume 49 ml LVOT CO 3.6 l/min LVOT CI 1.6 l/min/m2 Pulmonic Valve Name Value Normal RVOT Doppler
[2022-08-07 00:27] LABS: Troponin I 0.508 ng/mL (0.000-0.034)
[2022-08-07] MEDS: METOPROLOL SUCCINATE EXT REL 25 MG TABCR PO (08:34)
[2022-08-07] MEDS: SACUBITRIL/VALSARTAN 49-51 MG TABLET 1 TABLET PO ×2 (08:34→20:58)
[2022-08-07] MEDS: ASPIRIN 81 MG ENTERIC TABLET PO (08:35)
[2022-08-07] MEDS: TICAGRELOR 90 MG TABLET PO ×2 (08:35→20:58)
[2022-08-07] MEDS: EMPAGLIFLOZIN 10 MG TABLET PO (08:35)
--- NOTE | 2022-08-07 09:32 | WPDCNINT ---
Assessment and Plan Assessment and plan (1) STEMI (ST elevation myocardial infarction): Code(s): I21.3 - ST elevation (STEMI) myocardial infarction of unspecified site Status: Acute Assessment and Plan: Patient presented with chest pain syncope and abnormal ST elevation on EKG Cardiac catheterization as above mentioned did not show any acute occlusion. Currently chest pain-free Continue aspirin statin Brilinta beta-henrique and ARB Plan to check echocardiogram today to evaluate for any left ventricular wall aneurysm (2) Ischemic cardiomyopathy: Code(s): I25.5 - Ischemic cardiomyopathy Status: Acute Assessment and Plan: As above mention echo planned Continue aspirin statin Brilinta beta-henrique and Entresto (3) Syncope: Code(s): R55 - Syncope and collapse Status: Acute Assessment and Plan: Likely secondary to UT ICU telemetry monitoring Plan DVT prophylaxis -SCDs while in bed I expect patient to ambulate today. Nutrition -heart healthy diet Code Status - Full Code Transfer out of ICU today Online Advertising Manager Consult Note Consult date: 08/07/22 Reason for consult: STEMI HPI: Brody Alvares is a 46 year old male with past medical history of coronary artery disease, STEMI, cardiogenic shock, multivessel PCI, ischemic cardiomyopathy, AICD presented yesterday with chief complaint of chest pain syncope. Patient states that he was cooking food in his kitchen and he started feeling sweaty which was followed by pain in the chest she rated at 7/10. Pain was pressure-like in quality and was in the middle and was associated with numbness of his left arm. He felt diaphoretic and also had little bit of nausea. No shortness of breaths he states that he felt like he passed out for few seconds at as he felt dizzy and lightheaded. His son was there who caught him before he fell. When he came to ER he was still having pain. He states that his symptoms improved he received nitroglycerin Brilinta and aspirin and by the time he was taken to cardiac catheterization lab his symptoms have significantly improved. He does not believe that his AICD fired as he is well aware of the feeling from the past episodes. He underwent emergent cardiac catheterization which showed 1.? ? Significant coronary artery disease with 3 prior history of myocardial infarctions in the distribution of LAD and right coronary arteries with severe ischemic cardiomyopathy 2. ? episode of syncope at home followed by some chest pain after he recovered from that.? ECG upon the appearance of anterior ST elevation with current of injury however the LAD is nicely patent with VELIA 3 flow down to the apex.? There is an occluded high marginal or high diagonal branch as described above which receives collateral from the distal LAD. 3.? ? Remaining patency of the proximal LAD and proximal to mid right coronary is which were stented previously ST described above. Following procedure patient was admitted to ICU for further evaluation management. Patient at this time states that he feels much better and his symptoms have completely resolved. He denies any new complaints apart from discomfort at the site of cardiac catheterization in the right groin. All other systems were reviewed and were negative Review of Systems Review of Systems: All systems reviewed & are unremarkable except as noted in HPI and below (HPI) [facility] Past Medical History Medical History ICD (implantable cardioverter-defibrillator) in place Inferior myocardial infarction Associated with cardiogenic shock, April 2019, treated with RCA and Left anterior descending stents by Dr. Mendiola Ischemic cardiomyopathy Surgical History Surgical History History of cardiac cath Family History Family History Father CVD (cardiovascular di
--- NOTE | 2022-08-07 10:51 | PM.PNCARD ---
Progress Note: A&P Assessment and Plan (1) Acute myocardial infarction: Code(s): I21.9 - Acute myocardial infarction, unspecified Status: Acute (2) Ischemic cardiomyopathy: Code(s): I25.5 - Ischemic cardiomyopathy Status: Acute (3) Inferior myocardial infarction: Code(s): I21.19 - ST elevation (STEMI) myocardial infarction involving other coronary artery of inferior wall Status: Acute (4) Syncope: Code(s): R55 - Syncope and collapse Status: Acute Plan Patient presented to the ED after an episode of brief syncope that occurred at home. Patient had also experienced chest pain at that time. EKGs in the ED concerning for anterior STEMI. Cardiac cath showed: 1. Significant coronary artery disease with 3 prior history of myocardial infarctions in the distribution of LAD and right coronary arteries with severe ischemic cardiomyopathy 2. Eepisode of syncope at home followed by some chest pain after he recovered from that.? ECG upon the appearance of anterior ST elevation with current of injury however the LAD is nicely patent with VELIA 3 flow down to the apex.? There is an occluded high marginal or high diagonal branch as described above which receives collateral from the distal LAD. 3.? Remaining patency of the proximal LAD and proximal to mid right coronary is which were stented previously ST described above. 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 Patient now has been asymptomatic. PLAN: -Obtain TTE -Interrogate his ICD -Continue with ASA, Brilinta, high potency statin, Jardiance, Toprol, Entresto -No longer needs ICU care. Will transfer out to Med/Surg with telemetry. Subjective Date/time seen: 08/07/22 10:51 Interval history: No acute events overnight. Patient doing well after cardiac cath. Patient sleeping comfortably this AM. Denies any chest pain, shortness of breath, palpitations, orthopnea Review of Systems Review of Systems: All systems reviewed & are unremarkable except as noted in HPI and below (subjective) Exam Const: General: comfortable and no acute distress Neck: Neck: no JVD Resp: Effort & Inspection: normal respiratory effort Auscultation: clear to auscultation bilaterally Cardio: Rate: regular rate Rhythm: regular rhythm Heart sounds: no murmurs GI: GI Palp: Yes Soft to palpation and No Tenderness to palpation present (GI) Skin: General skin exam: normal color Neuro: Speech: normal speech Extrem: General: no edema Psych: Mental Status: mental status grossly normal Objective Data Vital Signs Vital Signs: Vital Signs - 24 hr 08/06/22 17:11 08/06/22 17:48 08/06/22 17:45 Temperature 36.2 C L Pulse Rate 87 75 94 Respiratory Rate 18 24 H Blood Pressure 122/75 114/60 Pulse Oximetry 100 100 Oxygen Delivery Room Air 08/06/22 17:49 08/06/22 18:00 08/06/22 18:01 Temperature Pulse Rate 80 78 78 Respiratory Rate 14 15 13 Blood Pressure 119/92 H Pulse Oximetry 100 100 100 Oxygen Delivery 08/06/22 18:22 08/06/22 20:00 08/06/22 20:00 Temperature 36.5 C Pulse Rate 78 92 92 Respiratory Rate 20 17 Blood Pressure 112/84 Pulse Oximetry 99 100 Oxygen Delivery 08/06/22 20:00 08/06/22 21:06 08/06/22 21:36 Temperature Pulse Rate 98 88 Respiratory Rate 19 18 Blood Pressure 123/76 117/86 Pulse Oximetry 100 98 Oxygen Delivery Room Air 08/06/22 22:00 08/06/22 22:06 08/06/22 23:06 Temperature Pulse Rate 88 88 78 Respiratory Rate 22 H 18 Blood Pressure 110/78 102/77 Pulse Oximetry 98 98 Oxygen Delivery 08/07/22 00:00 08/07/22 00:06 08/07/22 00:00 Temperature 36.6 C Pulse Rate 74 77 Respiratory Rate 16 Blood Pressure 107/73 Pulse Oximetry 98 Oxygen Delivery Room Air 08/07/22 01:06 08/07/22 02:06 08/07/22 02:00 Temperature Pulse Rate 75 79 79 Respiratory Rate 12 15 Blood Pressure 106/68 102/68 Pulse Oximetry 99 98 Oxygen Delivery 08/07/22 04:
[2022-08-08] VITALS: BP 115/71; PULSE 77; RESP 18; TEMP 36.6; O2SAT 100
[2022-08-08 04:00] VITALS: PULSE 71
[2022-08-08 08:00] VITALS: BP 110/74; PULSE 81; PULSE 93; RESP 18; TEMP 36.4; O2SAT 100; O2SAT 99
[2022-08-08 08:38] VITALS: PULSE 76
[2022-08-08] MEDS: ASPIRIN 81 MG ENTERIC TABLET PO (08:38)
[2022-08-08] MEDS: SACUBITRIL/VALSARTAN 49-51 MG TABLET 1 TABLET PO (08:38)
[2022-08-08] MEDS: METOPROLOL SUCCINATE EXT REL 25 MG TABCR PO (08:38)
[2022-08-08] MEDS: ATORVASTATIN 40 MG TABLET 80 MG PO (08:38)
[2022-08-08] MEDS: EMPAGLIFLOZIN 10 MG TABLET PO (08:38)
[2022-08-08] MEDS: TICAGRELOR 90 MG TABLET PO (08:38)
[2022-08-08 12:00] VITALS: PULSE 76
[2022-08-08 12:07] VITALS: BP 126/88; PULSE 84; RESP 17; TEMP 36.4; O2SAT 100
--- NOTE | 2022-08-08 13:18 | PM.DS ---
DS: Admitting Diagnosis Discharge Date 08/08/2022 Admitting Diagnosis Acute coronary syndrome Syncope DS: Discharge Diagnosis Discharge Diagnosis Plan Acute coronary syndrome Syncope DS: Summary Hospital Course Hospital Course: Patient presented to the ED 08/06 after an episode of brief syncope that occurred at home. Patient had also experienced chest pain at that time. EKGs in the ED concerning for anterior STEMI. Patient underwent emergent cardiac cath showed: 1. Significant coronary artery disease with 3 prior history of myocardial infarctions in the distribution of LAD and right coronary arteries with severe ischemic cardiomyopathy 2. Episode of syncope at home followed by some chest pain after he recovered from that.? ECG upon the appearance of anterior ST elevation with current of injury however the LAD is nicely patent with VELIA 3 flow down to the apex.? There is an occluded high marginal or high diagonal branch as described above which receives collateral from the distal LAD. 3.? Remaining patency of the proximal LAD and proximal to mid right coronary is which were stented previously ST described above. 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 Patient was admitted to the ICU post-cath for further evaluation. No significant arrhythmias on telemetry. Patient remained asymptomatic here. Peak troponin of 0.508 Echocardiogram was done which showed: Left ventricular chamber dimension is severely enlarged. Left ventricular systolic function is severely reduced, estimated at 20-25%. The left ventricular diastolic function is grade I diastolic dysfunction. There is akinesis of the anteroseptum, apical septum, apical cap, inferior wall, and inferoseptum. Upon review of his [facility] records, echocardiogram has no significant changes compared to prior. His ICD was interrogated which did not show any arrhythmic events prior to admission. His last episode of VT was on 07/13/22, was treated with ATP x 4. Last ICD shock was in June 2022 for VT. Patient stable for discharge today. Will have patient follow up with Dr. Mendiola, his primary Manager Surgery. Patent to continue ASA 81mg, atorvastatin 80mg, Brilinta 90mg BID, Jardiance 10mg, Toprol 25mg, Entresto Status at Discharge Functional status at discharge: independent ambulation Overall status at discharge: patient is back to baseline Time Spent with Patient Time attestation: Total time spent providing and/or coordinating discharge services: Time spent: Greater than 30 minutes Exam Const: General: comfortable and no acute distress Neck: Neck: no JVD Resp: Effort & Inspection: normal respiratory effort Auscultation: clear to auscultation bilaterally Cardio: Rate: regular rate Rhythm: regular rhythm Heart sounds: no murmurs GI: GI Palp: Yes Soft to palpation and No Tenderness to palpation present (GI) Skin: General skin exam: normal color Extrem: General: no edema Psych: Mental Status: mental status grossly normal Discharge Plan Discharge Attending physician on discharge: Keesha Mckeon Discharging Clinician: Keesha Mckeon Anticipated Discharge Date/Time: 08/08/22 13:15 Patient Disposition: Home, Self-Care Activity: may shower Diet: heart healthy Patient Instructions: Antibiotic Form Stand Alone Forms: General Discharge Information Follow-up/Referrals: Tutu Mendiola MD [Physician] - 3 Weeks Discharge Medications: Continued atorvastatin 80 mg Tablet 80 mg PO HS aspirin 81 mg Tablet,Chewable 81 mg PO HS Brilinta 90 mg Tablet 90 mg PO Q12H Qty: 0 0RF metoprolol succinate 25 mg tablet extended release 24 hr 25 mg PO DAILY Jardiance 10 mg tablet 10 mg PO DAILY Entresto 49-51 mg tablet 1 tablet PO DAILY Date of admission: 08/06/22 18:11 Primary Care Provider: PHYSICIAN,CARPET JACK Admitting Provider: Andrzej Green Attending physician on admission: Andrzej Green Condition: Critical
== END 2022-08-08 14:22 | disposition home or self-care (01) | DRG 190 ==
LOC: ANHED 18:16 → ANHICU 18:18
PROVIDERS: Emergency Medicine; Admitting Provider Specialist; Emergency Provider General Practice; Visit Provider Internal Medicine
PROC: 4A023N7 Measurement of Cardiac Sampling and Pressure, Left Heart, Percutaneous Approach (ICD-10-PCS; CPT 93452; principal; 2022-08-06 17:45)
DX: I21.09 ST elevation (STEMI) myocardial infarction involving other coronary artery of anterior wall (principal); I25.10 Atherosclerotic heart disease of native coronary artery without angina pectoris; I25.5 Ischemic cardiomyopathy; I25.2 Old myocardial infarction; Z95.5 Presence of coronary angioplasty implant and graft; Z95.810 Presence of automatic (implantable) cardiac defibrillator; Z79.82 Long term (current) use of aspirin
CPT/HCPCS: 36415; 71045; 80053; 83690; 84484; 85025; 85610; 85730; 93005; 93306; 93458; 96374; 99285; A9270; C1887; C1894; J1644; J2250; J3010; J7030; J7040

== ENCOUNTER 2022-10-17 09:45 | Outpatient (RCR) | payer OTHER, SELFPAY ==
[2022-09-07 11:16] VITALS: PULSE 93
== END 2022-11-01 15:43 | disposition home or self-care (01) ==
LOC: ANHCPREHAB 09:45
PROVIDERS: Visit Provider Nurse Practitioner Adult Health
DX: I25.2 Old myocardial infarction (principal); I50.89 Other heart failure
CPT/HCPCS: 93798

== ENCOUNTER 2024-02-05 13:38 | Outpatient (CLI) | payer OTHER, SELFPAY ==
[2024-02-05 14:02] LABS: Basophils Absolute Auto 0.1 K/mm3 (0.0-0.1); Basophils Percent Auto 0.7 % (0.2-1.2); Eosinophils Absolute Auto 0.1 K/mm3 (0-0.3); Eosinophils Percent Auto 0.8 % (0-4.4); Hematocrit 51.5 % (42.0-52.0); Hemoglobin 16.9 g/dL (14.0-18.0); Immature Granulocyte Absolute 0.02 K/mm3 (0.00-0.031); Immature Granulocyte Percent A 0.3 % (0-0.5); Lymphocytes Absolute Auto 1.54 K/mm3 (0.9-3.2); Lymphocytes Percent Auto 21.4 % (18.3-44.2); Mean Corpuscular HGB Conc 32.8 g/dl (32-36); Mean Corpuscular Hemoglobin 31.7 pg (26-34); Mean Corpuscular Volume 96.6 fl (80-100); Mean Platelet Volume 10.3 fl (7.4-10.4); Monocytes Absolute Auto 0.5 K/mm3 (0.1-0.6); Monocytes Percent Auto 6.4 % (2.6-8.5); Neutrophils Absolute Auto 5.1 K/mm3 (1.3-6.7); Neutrophils Percent Auto 70.4 % (45.5-73.1); Platelet Count Result 204 k/mm3 (150-375); Red Blood Count 5.33 M/mm3 (4.6-6.20); Red Cell Distribution Width 13.9 % (11.5-14.5); White Blood Count 7.2 K/mm3 (4.5-10.0)
[2024-02-05 14:17] LABS: Alanine Aminotransferase 42 U/L (6-50); Albumin Level 4.4 g/dL (3.5-5.1); Alkaline Phosphatase 47 U/L (38-126); Anion Gap 5 mmol/L (4-12); Aspartate Amino Transferase 36 U/L (17-59); Bilirubin,Total 0.6 mg/dL (0.2-1.3); Blood Urea Nitrogen 8 mg/dL (9-20); Calcium 9.4 mg/dL (8.4-10.2); Carbon Dioxide 25 mmol/L (22-30); Chloride 107 mmol/L (98-107); Estimated Glomerular Filt Rate > 60; Glucose 109 mg/dL (65-110); Sodium 137 mmol/L (137-145)
[2024-02-05 14:25] LABS: NT Pro B Type Natriuretic Pept 183 pg/mL (19.9-100)
== END 2024-02-05 13:39 | disposition home or self-care (01) ==
LOC: ANHLAB 13:40
PROVIDERS: Visit Provider Internal Medicine Cardiovascular Disease
DX: I25.5 Ischemic cardiomyopathy (principal)
CPT/HCPCS: 36415; 80053; 83880; 85025

== ENCOUNTER 2025-08-26 12:48 | Emergency (ER) | payer OTHER, SELFPAY ==
--- NOTE | ~2025-08-26 | XR_ITS ---
XR skull <4V 08/26/2025 14:16 Indication: Foreign body unchanged and. Procedure: 2 views of the skull Comparison: No prior studies for comparison. Findings: No foreign body identified. No fracture or traumatic malalignment. There is a bilobed ossific density overlying the left frontal sinus, possibly an osteoma. There is ossification of the nuchal ligament. Impression: 1: No foreign body identified overlying the chin. Reviewed, dictated and finalized at location O. Impression: 1: No foreign body identified overlying the chin.
--- NOTE | 2025-08-26 12:57 | ECG_ITS ---
Test Date: 2025-08-26 13:05:23 Measurements Intervals [place] Rate: 85 P: 48 [place]: 165 QRS: -37 QRSD: 151 T: 0 QT: 398 QTc: 475 Interpretive Statements SINUS RHYTHM POSSIBLE RIGHT ATRIAL ENLARGEMENT LEFT ATRIAL ENLARGEMENT RIGHT BUNDLE BRANCH BLOCK INFERIOR INFARCT, AGE INDETERMINATE ANTEROLATERAL INFARCT, AGE INDETERMINATE ABNORMAL ECG No previous ECG available for comparison Electronically Signed On 08-26-2025 13:56:07 CDT by Keven Saba D.O.
[2025-08-26 12:58] VITALS: BP 128/79; PULSE 95; RESP 16; TEMP 36.2; O2SAT 100
[2025-08-26] MEDS: TETANUS,DIPHTHERIA,AC PERTUSSIS ADULT (0.5 ML) BOOSTRIX IM (13:54)
[2025-08-26] MEDS: LIDO 1%/EPINEPHRINE 1:100,000 20 ML VIAL 3 ML INFILTRATE (13:55)
--- NOTE | 2025-08-26 14:29 | ED.WOUNDLAC ---
HPI - Wound/Laceration General Chief Complaint: Wound/Laceration Stated Complaint: Stitches Time Seen by Provider: 08/26/25 13:00 Source: patient and RN notes reviewed Mode of arrival: ambulatory Limitations: no limitations History of Present Illness HPI narrative: 49-year-old male patient presents to the [facility] complaining of chin laceration. Patient said approximately 10 hours ago 3:00 a.m. in the morning using the restroom when he said he started to feel hot and nauseous and woke up on the ground. Patient believes he lost consciousness. Patient is unsure if he had anything but he noticed a laceration to his chin. Patient also believes he chipped his tooth. Patient currently is denies any symptoms now. Patient has a significant cardiac history with a history of a myocardial infarction status post stents. Patient denies any dizziness, lightheadedness, nausea vomiting, chest pain, difficulty breathing, left arm pain, jaw pain for, headaches, vision changes, one-sided weakness, slurred speech, confusion, facial drooping, or any other symptoms. Patient is unsure of his tetanus status. Patient denies any other injuries. Patient does not take any oral anticoagulants but does take dual antiplatelet therapy for his cardiac history. Related Data Home Medications ?Medication ?Instructions ?Recorded ?Confirmed ?Last Taken ?Type aspirin 81 mg chewable tablet 81 mg PO HS 12/24/19 09/07/22 Unknown History atorvastatin 80 mg tablet 80 mg PO HS 12/24/19 09/07/22 Unknown History empagliflozin 10 mg tablet 10 mg PO DAILY 08/06/22 09/07/22 Unknown History (Jardiance) ezetimibe 10 mg tablet mg 08/26/25 Unknown History metoprolol succinate 100 mg mg PO 08/26/25 Unknown History tablet,extended release 24 hr sacubitril 97 mg-valsartan 103 mg tablet 08/26/25 Unknown History tablet (Entresto) spironolactone 25 mg tablet mg 08/26/25 Unknown History Allergies Allergy/AdvReac Type Severity Reaction Status Date / Time No Known Allergies Allergy Verified 08/26/25 13:26 Review of Systems Review of Systems: CONSTITUTIONAL: Denies fever, chills, or sweats. EYES: Denies visual changes, redness, or discharge. ENT: Denies rhinorrhea, congestion, sore throat, or otalgia. CARDIOVASCULAR: Denies chest pain, palpitations, lightheadedness, dizziness, or edema. RESPIRATORY: Denies cough or dyspnea. GASTROINTESTINAL: Denies abdominal pain, nausea, vomiting, or diarrhea. GENITOURINARY: Denies dysuria or hematuria. SKIN: Denies rash or itching. Positive for laceration. MUSCULOSKELETAL: Denies back pain, joint pain, or myalgia. NEUROLOGIC: Denies headache, seizures, confusion, one-sided weakness, slurred speech, facial droop, numbness, or weakness. Positive for loss of consciousness. PSYCHIATRIC: Denies anxiety or depression. All other systems reviewed are negative, except as documented in HPI. [facility] Past Medical History Medical History ICD (implantable cardioverter-defibrillator) in place Ischemic cardiomyopathy Inferior myocardial infarction Associated with cardiogenic shock, April 2019, treated with RCA and Left anterior descending stents by Dr. Mendiola Surgical History Surgical History History of cardiac cath Family History Family History Father CVD (cardiovascular disease) Hx of CABG Mother Thyroid disease Social History Social History Smoking packs per day: 1 Smoking cigarettes per day: 20.0 Years smoked: 24 Smoking pack-years: 24.00 Smoking status: Former smoker Tobacco type: cigarettes Smoking end date: 11/04/18 Alcohol intake: current Drinks per week: 5 Substance use: current Substance use type: marijuana Spiritual care concerns: No Comments At the time of my signature, I reviewed and agree with the nursing past medical, surgical, social, and family history. There is no relevant family history pertinent to the patient complaint. Exam Narrative: GENERAL: This is a well-nourished, well-developed adult, in no apparent distress. They are non ill-appearing, nontoxic appearing. HEAD: normocephalic. Laceration to patient's chin just below his bottom lip. Measuring approximately 2 cm long it is irregular. There is a foreign body present appears to be a tooth. Wound approximates well. Part of the chin laceration is through and through to the oropharynx. Oral mucosa laceration is measuring less than 0.5 cm. No other traumatic injuries noted. No raccoon eyes or Schultz signs. EYES: Sclera clear/white. Conjunctiva normal. Vision is grossly intact. Extraocular movements intact. Pupils PERRLA. No subconjunctival hemorrhage or hyphema. EARS: External ears normal, Hearing grossly intact. NOSE: External nose normal THROAT: Mucous membranes moist, posterior pharynx clear, without erythema or swelling. Uvula midline. OROPHARYNX: Right upper central incisor is chipped, tooth is intact. No other fractured teeth, missing teeth, loose teeth. No pain or swelling under the tongue. Tongue is midline. No other injuries noted inside the oral pharynx. NECK: Neck supple, non-tender without lymphadenopathy, masses or thyromegaly. No cervical point tenderness, crepitus, or step-offs. CARDIOVASCULAR: Regular rate and rhythm without murmurs, gallops, or rubs. RESPIRATORY: Clear to auscultation. Breath sounds equal bilaterally. No wheezes, rales, or rhonchi. SKIN: warm, Dry, intact with no suspicious lesions or rash, good texture and turgor. NEURO: awake, alert, and oriented to person, place and time. There were no obvious focal neurologic abnormalities. Cranial nerve 2-12 grossly intact. Patient's gait is strong and steady EXTREMITIES: No joint tenderness, effusion, or edema noted. BACK: Nontender without deformity. No CVA tenderness. No thoracic or lumbar point tenderness, crepitus, or step-offs. Course Course Emergency Course: Portions of this record may have been created with voice recognition software Level of Care: Express Care Visit Vital Signs Vital signs: Vital Signs Temperature 97.1 F L 08/26/25 12:58 Pulse Rate 95 08/26/25 12:58 Respiratory Rate 16 08/26/25 12:58 Blood Pressure 128/79 08/26/25 12:58 Pulse Oximetry 100 08/26/25 12:58 Temperature 97.1 F L 08/26/25 12:58 Pulse Rate 95 08/26/25 12:58 Respiratory Rate 16 08/26/25 12:58 Blood Pressure 128/79 08/26/25 12:58 Pulse Oximetry 100 08/26/25 12:58 Reviewed Procedures Laceration Laceration 1: Date: 08/26/25 Time: 13:45 Site: face (Mid Upper chin) Size (cm): 2 Description: irregular Depth: simple, single layer Local Anesthetic: lidocaine 1% and with epi Amount of anesthesia used (mL): 3 Pre-repair: wound explored, irrigated extensively and minor debridement (Broken tooth removed, foreign body removed) ====== Skin Level ====== Skin layer closed with: nylon Size (cm): 5-0 Number of sutures: 5 Technique: simple, interrupted ====== Subcutaneous Layer ====== ====== Muscle Layer ====== ====== Tendon Layer ====== MDM - Wound/Laceration MDM Narrative Medical decision making narrative: EKG is sinus rhythm with nonspecific ST changes, EKG is abnormal, only comparable EKG to review is from a previous STEMI. No dynamic changes or prominent ST elevation or depression. The EKG is concerning given his history you be best for him to be evaluated in the ER and get lab work and further evaluation. Patient is also on dual antiplatelet therapy, he does not take any oral anticoagulants however he did his chin cannot exclude any significant head trauma or closed head injuries here in the Express Care. Patient denies any symptoms or any other injuries other in his chin. Given patient's symptoms, it is recommend the patient seek a higher level care and proceed immediately to the emergency department. The patient is adamantly refusing to go to the hospital even after reviewing EKG. Patient says he feels fine it will not go to the hospital and will sign out against medical advice if needed. Informed patient that we cannot rule out including but not limited to any significant cardiac event any true significant traumatic injuries, significant head injury, or any other serious condition is based off his symptoms and findings today. Patient still wants to sign against medical advice. Patient has chosen to refuse further care. Risks of an incomplete evaluation and treatment were discussed with the patient, including potential for or permanent disability. Patient verbalizes that he understand these risks, but still desires to refuse further care. Patient recommended to follow up with PCP or farm laborer in the next possible interval. Specifically, patient was told they can return to the ED at any time to resume care. Patient has the mental capacity to make informed medical decisions on his own behalf. Since patient does not want to go the hospital will go ahead and close patient's chin laceration given its location. Also will update patient's tetanus. Successful closure of patient's chin laceration there was 2 tooth fragments removed from the wound successfully prior to closure. There was another foreign body present, unsure what it is appears to be from an object, patient thinks he might have hit his chin on a dresser and may be checked at off the dresser. No other foreign bodies are identified. Obtain imaging of his skull and chin area to assess for any soft tissue foreign bodies, no foreign bodies were identified on imaging. Full exposure of the wound does not reveal any other foreign bodies prior to closure. Patient has successful laceration closure of the chin laceration. The oral mucosal laceration is not large enough to close the not indicated and should likely heal on its own rapidly. Since patient has a open wound to his oropharynx will go ahead and treat him prophylactically with Augmentin. Strict ER precautions were discussed with patient given the events that occurred, he was advised he may go to the ER any time on his own free will. Strict ER precautions were discussed including but not limited to if he develops severe headaches, dizziness, lightheadedness, nausea, vomiting, vision changes, confusion, lethargy, unresponsiveness, seizure-like activity, one-sided weakness, facial droop, slurred speech, chest pains, left arm pain, jaw pain, profusely sweating, difficulty breathing, shortness of breath, or any serious concerns. Patient verbalized understanding said he were to the ER if anything changes. Patient said he will contact his farm laborer about the events that happened. Patient said he does have a pacemaker/defibrillator said he was not contacted from the company about any significant events of through the night, he denies having any defibrillations through the night. Patient's vital signs are hemodynamically stable, patient is alert and oriented x4, nontoxic appearing, no apparent distress, patient is stable to sign out against medical advice. Differential Diagnosis Differential diagnosis: Likely other (Acute coronary syndrome, myocardial infarction, NSTEMI, STEMI, syncope, close head injury, intracranial hemorrhage, CVA, TIA, seizure, laceration, fracture, retained foreign body) Imaging Data Radiologist's impression: ITS Impressions Skull X-Ray 08/26/25 14:17 Impression: 1: No foreign body identified overlying the chin. ECG Data EKG #1: ECG completion date: 08/26/25 ECG completion time: 13:05 Prior ECG tracings: available for review Interpretation: Abnormal, somewhat changed compared to most recent EKG, however previous EKG was a STEMI. EKG Interpretation: normal rate, sinus rhythm, no ectopy, non-specific ST changes, normal QRS, RBBB, normal QT and no acute changes Critical Care Time Critical Care Time Critical Care Time: No Discharge Plan Discharge Clinical Impression: Chin laceration, Chipped tooth, Foreign body (FB) in soft tissue, Syncope Patient Disposition: Left Against Medical Advice Condition: Stable Instructions: Facial Laceration (ED) Additional Instructions: You have sign out against medical advice, you may return to the ER at any point for further evaluation given her symptoms today. The x-ray of your skull shows no evidence of any other retained foreign body or any acute findings. You have a chipped tooth the right upper mouth. Follow-up with her dentist to evaluate your tooth. Your EKG appears to be unchanged. Your tetanus is updated today. Your sutures need to come out 5-7 days. Please take the antibiotics as directed to prevent infection. Wash the wound daily with mild soap and water, do not soak or scrub the wound. Avoid dirty water to the wound is healed completely. May apply antibiotic ointment or Vaseline to the wound daily. Please keep it dry, you may leave it open to air or you may covered with nonadherent dressing such as a Band-Aid. Look for signs of infection such as increased redness, swelling, pain, fevers, drainage. Follow-up with your PCP or farm laborer in 3-5 days. Please go to the ER immediately if you lose consciousness again, you developed severe headaches, dizziness, lightheadedness, nausea, vomiting, vision changes, signs of infection, chest pain, difficulty breathing, jaw pain, left arm pain, fevers, sweats, seizure-like activity, unresponsiveness, one-sided weakness, facial droop, slurred speech, confusion, or any serious concerns. Patient Language: Mauritanian Prescriptions: New amoxicillin-pot clavulanate 875-125 mg tablet 1 tablet PO Q12H 5 Days Qty: 10 0RF No Action spironolactone 25 mg tablet ezetimibe 10 mg tablet sacubitril-valsartan [Entresto] 97-103 mg tablet metoprolol succinate 100 mg tablet extended release 24 hr PO atorvastatin 80 mg Tablet 80 mg PO HS aspirin 81 mg Tablet,Chewable 81 mg PO HS Brilinta 90 mg Tablet 90 mg PO Q12H Qty: 0 0RF Jardiance 10 mg tablet 10 mg PO DAILY Follow-up/Referrals: PHYSICIAN,INSPECTOR AND HAND PACKAGER [Primary Care Provider, Internal Medicine] Time of Disposition: 14:35
== END 2025-08-26 14:45 | disposition left against medical advice (07) ==
DX: S01.82XA Laceration with foreign body of other part of head, initial encounter (principal); W19.XXXA Unspecified fall, initial encounter; Z23 Encounter for immunization; Z87.891 Personal history of nicotine dependence; F12.90 Cannabis use, unspecified, uncomplicated; Z95.810 Presence of automatic (implantable) cardiac defibrillator; I25.5 Ischemic cardiomyopathy; I25.2 Old myocardial infarction; Z79.82 Long term (current) use of aspirin
CPT/HCPCS: 12011; 70250; 90471; 90715; 93005; 99213; G0463; J2004

== ENCOUNTER 2025-09-03 11:09 | Emergency (ER) | payer OTHER, SELFPAY ==
[2025-09-03 11:20] VITALS: BP 130/96; PULSE 91; RESP 16; TEMP 36.6; O2SAT 100
--- NOTE | 2025-09-03 11:32 | ED.WOUNDLAC ---
HPI - Wound/Laceration General Chief Complaint: Wound/Laceration Stated Complaint: SUTURE REMOVAL Time Seen by Provider: 09/03/25 11:30 Source: patient Mode of arrival: ambulatory Limitations: no limitations History of Present Illness HPI narrative: Brody is a 49-year-old male patient presenting to the clinic today for suture removal. He reports he had sutures placed 8 days ago in the clinic. Had through/through laceration just below the lip and above the labiomental crease. Wound healing well. No redness, swelling, or discharge. No concerns. Related Data Home Medications ?Medication ?Instructions ?Recorded ?Confirmed ?Last Taken ?Type aspirin 81 mg chewable tablet 81 mg PO HS 12/24/19 09/07/22 Unknown History atorvastatin 80 mg tablet 80 mg PO HS 12/24/19 09/07/22 Unknown History empagliflozin 10 mg tablet 10 mg PO DAILY 08/06/22 09/07/22 Unknown History (Jardiance) ezetimibe 10 mg tablet mg 08/26/25 Unknown History metoprolol succinate 100 mg mg PO 08/26/25 Unknown History tablet,extended release 24 hr sacubitril 97 mg-valsartan 103 mg tablet 08/26/25 Unknown History tablet (Entresto) spironolactone 25 mg tablet mg 08/26/25 Unknown History Allergies Allergy/AdvReac Type Severity Reaction Status Date / Time No Known Allergies Allergy Verified 08/26/25 13:26 Review of Systems Review of Systems: Pertinent positives per HPI. Patient denies any fever, chills, rash, headache, visual changes, dizziness, cough, shortness of breath, chest pain, palpitations, nausea, vomiting, diarrhea, constipation, abdominal pain, or any urinary issues. [facility] Past Medical History Medical History ICD (implantable cardioverter-defibrillator) in place Ischemic cardiomyopathy Inferior myocardial infarction Associated with cardiogenic shock, April 2019, treated with RCA and Left anterior descending stents by Dr. Mendiola Surgical History Surgical History History of cardiac cath Family History Family History Father CVD (cardiovascular disease) Hx of CABG Mother Thyroid disease Social History Social History Smoking packs per day: 1 Smoking cigarettes per day: 20.0 Years smoked: 24 Smoking pack-years: 24.00 Smoking status: Former smoker Tobacco type: cigarettes Smoking end date: 11/04/18 Alcohol intake: current Drinks per week: 5 Substance use: current Substance use type: marijuana Spiritual care concerns: No Comments At the time of my signature, I reviewed and agree with the nursing past medical, surgical, social, and family history. There is no relevant family history pertinent to the patient complaint. Exam Narrative: General: Well-developed, well nourished, in no apparent distress Head: Normocephalic, atraumatic. Cardio: Regular rate and rhythm, s1 and s2 normal, no murmur appreciated. Resp: Clear to auscultation bilaterally, no rhonchi, rales, wheezing or rubs. Integumentary: [place], warm, and dry, 5 interrupted sutures just above the labiomental crease of the lower lip- wound well healing-approximate- no redness, swelling, or discharge. Course Course Emergency Course: Portions of this record may have been created with voice recognition software. Level of Care: Express Care Visit Vital Signs Vital signs: Vital Signs Temperature 36.6 C 09/03/25 11:20 Pulse Rate 91 09/03/25 11:20 Respiratory Rate 16 09/03/25 11:20 Blood Pressure 130/96 H 09/03/25 11:20 Pulse Oximetry 100 09/03/25 11:20 Temperature 36.6 C 09/03/25 11:20 Pulse Rate 91 09/03/25 11:20 Respiratory Rate 16 09/03/25 11:20 Blood Pressure 130/96 H 09/03/25 11:20 Pulse Oximetry 100 09/03/25 11:20 Vital signs reviewed MDM - Wound/Laceration MDM Narrative Medical decision making narrative: At the time of visit patient is resting comfortably on the exam table. Patient appears to be nontoxic. Patient presenting to the clinic today for suture removal. He reports he had sutures placed 8 days ago in the clinic. Had through/through laceration just below the lip and above the labiomental crease. Wound healing well. No redness, swelling, or discharge. No concerns. On exam patient has well-healing wound just above the labiomental crease. No redness or swelling. No discharge. Nontender to palpation. Patient had [address] Procedure: Suture removal was performed-5 interrupted sutures were removed-wound well healed, no bleeding, patient tolerated procedure well Plan: Patient has healing wound. Sutures were removed. Patient tolerated well. Watch for signs and symptoms of infection. Supportive measures were discussed with the patient and they voiced understanding discharge instructions and agrees to treatment plan. Return precautions reviewed Differential Diagnosis Differential diagnosis: Likely laceration, abscess, abrasion, avulsion of skin and other (Wound check, suture removal) Discharge Plan Discharge Clinical Impression: Encounter for removal of sutures Patient Disposition: Home Condition: Stable Instructions: Antibiotic Form, Stitches Removal (ED) Additional Instructions: Five interrupted sutures removed in the clinic today Wound is healing well-no signs or symptoms of infection Keep wound clean and dry Follow-up with your PCP as needed Patient Language: Hungarian Prescriptions: No Action spironolactone 25 mg tablet ezetimibe 10 mg tablet sacubitril-valsartan [Entresto] 97-103 mg tablet metoprolol succinate 100 mg tablet extended release 24 hr PO atorvastatin 80 mg Tablet 80 mg PO HS aspirin 81 mg Tablet,Chewable 81 mg PO HS Brilinta 90 mg Tablet 90 mg PO Q12H Qty: 0 0RF Jardiance 10 mg tablet 10 mg PO DAILY Follow-up/Referrals: PHYSICIAN,TREE TAPPING LABORER [Primary Care Provider, Internal Medicine] Time of Disposition: 11:32 Quality NIHSS Nursing Documentation ED NIHSS nursing documentation: reviewed/agree
== END 2025-09-03 11:35 | disposition home or self-care (01) ==
PROVIDERS: Emergency Provider Nurse Practitioner Family
DX: S01.81XD Laceration without foreign body of other part of head, subsequent encounter (principal); X58.XXXD Exposure to other specified factors, subsequent encounter; I25.2 Old myocardial infarction; I25.5 Ischemic cardiomyopathy; Z95.810 Presence of automatic (implantable) cardiac defibrillator; F12.90 Cannabis use, unspecified, uncomplicated; Z87.891 Personal history of nicotine dependence
CPT/HCPCS: 99211; G0463